=== PATIENT | female | born 1975 | race American Indian/Alaskan Native ===

== ENCOUNTER 2018-10-06 13:02 | Emergency (ER) | payer MEDICAID ==
[2018-10-06 13:28] VITALS: BP 132/86; PULSE 79; RESP 18; TEMP 97.9; O2SAT 99
[2018-10-06] MEDS ORDERED: PROPARACAINE/FLUORESCEIN SOD 100 DROP/5 ML BOTTLE OS STA (13:36)
[2018-10-06] MEDS ORDERED: PROPARACAINE/FLUORESCEIN SOD 100 DROP/5 ML BOTTLE ONE (14:00)
--- NOTE | 2018-10-06 14:04 | ED PDOC ---
HPI: Eye Injury/Pain Time Seen by Provider: 10/06/18 13:28 Chief Complaint (Nursing): Eye Problem Chief Complaint (Provider): Eye Problem History Per: Patient History/Exam Limitations: no limitations Onset/Duration Of Symptoms: Hrs (x62 hours) Current Symptoms Are (Timing): Still Present Additional Complaint(s): Jessica Castellanos is a 42 year old female with a past medical history of anemia and asthma, who presents to the emergency department complaining of left eye problems. Patient is unable to open her left eye and states that she is also experiencing photophobia. She states she has had some eye drainage and is also having some blurry vision. PMD: No provider Past Medical History Reviewed: Historical Data, Nursing Documentation, Vital Signs Vital Signs: Last Vital Signs Temp 97.9 F 10/06/18 13:26 Pulse 79 10/06/18 13:26 Resp 18 10/06/18 13:26 BP 132/86 10/06/18 13:26 Pulse Ox 99 10/06/18 13:26 - Medical History PMH: Anemia, Asthma, Bronchitis Denies: Chronic Kidney Disease - Surgical History Surgical History: No Surg Hx - Family History Family History: States: Unknown Family Hx - Immunization History Hx Tetanus Toxoid Vaccination: Yes Hx Influenza Vaccination: No Hx Pneumococcal Vaccination: No - Home Medications Home Medications: Ambulatory Orders Medication Instructions Recorded Famotidine [Pepcid] 20 mg PO BID #20 tab 04/12/18 Ondansetron ODT [Zofran ODT] 4 mg PO TID PRN #12 odt 04/12/18 Polymyxin/Trimethoprim Sulfate 1 drop XX Q6H 10 Days bottle 10/06/18 [Polytrim Ophth Soln] - Allergies Allergies/Adverse Reactions: Allergies Allergy/AdvReac Type Severity Reaction Status Date / Time SEASONAL Allergy Uncoded 04/12/18 13:45 Review of Systems ROS Statement: Except As Marked, All Systems Reviewed And Found Negative Eyes: Positive for: Pain, Vision Change, Redness Physical Exam - Reviewed Nursing Documentation Reviewed: Yes Vital Signs Reviewed: Yes - Physical Exam Appears: Positive for: Well, Non-toxic, No Acute Distress Head Exam: Positive for: ATRAUMATIC, NORMOCEPHALIC Skin: Positive for: Normal Color Eye Exam: Positive for: EOMI, PERRL, Conjunctival injection. Negative for: Other (No corneal abrasion) Neck: Positive for: Normal Cardiovascular/Chest: Negative for: Bradycardia, Tachycardia Respiratory: Negative for: Respiratory Distress Back: Positive for: Normal Inspection Extremity: Positive for: Normal ROM Neurologic/Psych: Positive for: Alert, Oriented, Gait. Negative for: Aphasia, Facial Droop - ECG O2 Sat by Pulse Oximetry: 99 (RA) Pulse Ox Interpretation: Normal Medical Decision Making Medical Decision Making: Time: 13:36 Plan: --Flucaine eye drops ---- Scribe Attestation: Documented by Louis Ghotra, acting as a scribe for Belinda Hurley PA-C Provider Scribe Attestation: All medical record entries made by the Scribe were at my direction and personally dictated by me. I have reviewed the chart and agree that the record accurately reflects my personal performance of the history, physical exam, medical decision making, and the department course for this patient. I have also personally directed, reviewed, and agree with the discharge instructions and disposition. Disposition - Clinical Impression Clinical Impression: Bacterial conjunctivitis - Disposition Disposition: Routine/Home Disposition Time: 14:24 Condition: STABLE Prescriptions: Polymyxin/Trimethoprim Sulfate [Polytrim Ophth Soln] 1 drop XX Q6H 10 Days bottle Instructions: Conjunctivitis ([place]) (DC) Forms: [employer] ([place]er)
== END 2018-10-06 14:29 | disposition home or self-care (01) ==
LOC: H.ER 13:02
DX: H10.89 Other conjunctivitis (principal); D64.9 Anemia, unspecified

== ENCOUNTER 2018-10-23 23:47 | Emergency (ER) | payer MEDICAID ==
[2018-10-23 23:56] VITALS: BP 124/75; PULSE 89; RESP 16; TEMP 97.8; O2SAT 98
--- NOTE | 2018-10-24 01:19 | ED PDOC ---
Lower Extremity Pain/Injury Time Seen by Provider: 10/23/18 23:57 Chief Complaint (Nursing): Lower Extremity Problem/Injury Chief Complaint (Provider): Lower Extremity Problem/Injury History Per: Patient History/Exam Limitations: no limitations Onset/Duration Of Symptoms: Days (1x) Current Symptoms Are (Timing): Still Present Severity: Moderate Additional Complaint(s): 42 year old female with a history of a fracture to the left leg presents to the ED for an evaluation of left leg pain that started today. Patient states she recently fractured her left leg (on 10/13/2018) and was evaluated at [facility] ED. Patient states she had her leg splinted, and states that she has an appointment with an orthopedist in an office on 10/27/2018, but is uncertain of the orthopedist's name. Patient was given an address to [facility] orthopedist clinic. Patient states that earlier today, she got up from a seated position with the help of her crutches, when she fell down and injured her left leg. Patient denies numbness and tingling to the leg. PMD: Sarmad Markham MD Past Medical History Reviewed: Historical Data, Nursing Documentation, Vital Signs Vital Signs: Last Vital Signs Temp 97.8 F 10/23/18 23:50 Pulse 89 10/23/18 23:50 Resp 16 10/23/18 23:50 BP 124/75 10/23/18 23:50 Pulse Ox 98 10/23/18 23:50 - Medical History PMH: Anemia, Asthma, Bronchitis Denies: Chronic Kidney Disease - Family History Family History: States: No Known Family Hx - Social History Current smoker - smoking cessation education provided: Yes Alcohol: Other (yes) Drugs: Denies - Immunization History Hx Tetanus Toxoid Vaccination: Yes Hx Influenza Vaccination: No Hx Pneumococcal Vaccination: No - Home Medications Home Medications: Ambulatory Orders Medication Instructions Recorded Famotidine [Pepcid] 20 mg PO BID #20 tab 04/12/18 Ondansetron ODT [Zofran ODT] 4 mg PO TID PRN #12 odt 04/12/18 Polymyxin/Trimethoprim Sulfate 1 drop XX Q6H 10 Days bottle 10/06/18 [Polytrim Ophth Soln] RX: Naproxen [Naprosyn] 500 mg PO BID PRN #10 tab 12/16/18 - Allergies Allergies/Adverse Reactions: Allergies Allergy/AdvReac Type Severity Reaction Status Date / Time SEASONAL Allergy Uncoded 04/12/18 13:45 Review of Systems ROS Statement: Except As Marked, All Systems Reviewed And Found Negative Musculoskeletal: Positive for: Leg Pain (left leg pain) Neurological: Negative for: Numbness ((-) tingling) Physical Exam - Reviewed Nursing Documentation Reviewed: Yes Vital Signs Reviewed: Yes - Physical Exam Appears: Positive for: Well, Non-toxic, No Acute Distress Head Exam: Positive for: ATRAUMATIC, NORMOCEPHALIC Skin: Positive for: Normal Color Extremity: Positive for: Capillary Refill (left lower extremity: <2 sec), Other (left lower extremity: in a posterior long leg splint: clean, dry, and intact. Distal sensations intact) Neurologic/Psych: Positive for: Alert, Oriented (3x) - ECG O2 Sat by Pulse Oximetry: 98 (RA) Pulse Ox Interpretation: Normal - Radiology X-Ray: Interpreted by Mi X-Ray Interpretation: Other (Lateral malleolar fracture minimally displaced distally, with normal mortise. Cast obscures fine bony and soft-tissue detail.) Medical Decision Making Medical Decision Makin:57 Initial impression: 42 year old female with a left lower extremity problem Initial plan: * XRay ankle left 3 views * XRay tibia fibula left Pt. informed of results. Advised to f/u [facility] ortho clinic on 10/27/2018 as previously scheduled without fail. Scribe Attestation: Documented bySobia Mujica, acting as a scribe for Gordo Glover Provider Scribe Attestation: All medical record entries made by the Scribe were at my direction and personally dictated by me. I have reviewed the chart and agree that the record accurately reflects my personal performance of the history, physical exam, medical decision making, and the department course for this patient. I have also personally directed, reviewed, and agree with the discharge instructions and disposition. Disposition - Clinical Impression Clinical Impression: Ankle fracture - Patient ED Disposition Is Patient to be Admitted: No - Disposition Referrals: Desmond Arceo III, MD [Staff Provider] - Disposition: Routine/Home Disposition Time: 02:00 Condition: STABLE Additional Instructions: FOLLOW UP YOUR ORTHOPEDIST ON 10/27/2018 WITHOUT FAIL RETURN TO ED IMMEDIATELY IF SYMPTOMS WORSEN AGUILAR ALANIS, thank you for letting us take care of you today. Your provider was Luis Miguel Don MD and you were treated for LT LEG PAIN. The emergency medical care you received today was directed at your acute symptoms. If you were prescribed any medication, please fill it and take as directed. It may take several days for your symptoms to resolve. Return to the Emergency Department if your symptoms worsen, do not improve, or if you have any other problems. Please contact your doctor or call one of the physicians/clinics you have been referred to that are listed on the Patient Visit Information form that is included in your discharge packet. Bring any paperwork you were given at discharge with you along with any medications you are taking to your follow up visit. Our treatment cannot replace ongoing medical care by a primary care provider outside of the emergency department. Thank you for allowing the [facility] team to be part of your care today. If you had an X-Ray or CT scan: A Radiologist will review the ED reading if any change in treatment is needed we will contact you. If you had a blood, urine, or wound culture: It will take several days for the results, if any change in treatment is needed we will contact you. If you had an STI test: It will take 48 hours for the results. Please call after 1 week if you have not heard back. Prescriptions: RX: Naproxen [Naprosyn] 500 mg PO BID PRN #10 tab PRN Reason: Pain Instructions: Ankle Fracture (DC) Forms: [employer] (German) Print Language: UPPER SORBIAN
--- NOTE | 2018-10-24 09:43 | RAD ---
Date of service: 10/24/2018 PROCEDURE: Radiographs of the left tibia and fibula. HISTORY: trauma COMPARISON: None available. TECHNIQUE: Frontal and lateral views obtained. FINDINGS: BONES: Cast obscures fine bone and soft-tissue detail. Minimally displaced fibular fracture appreciated at the level of the lateral malleolus. No additional fracture appreciable. No dislocation. No destructive bony lesion. Local soft tissues appear diffusely unremarkable. JOINT SPACES: As above. OTHER FINDINGS: None. IMPRESSION: Lateral malleolar fracture left ankle. No dislocation. Remainder unremarkable.
--- NOTE | 2018-10-24 09:44 | RAD ---
Date of service: 10/24/2018 PROCEDURE: Left Ankle Radiographs. HISTORY: trauma COMPARISON: None available. FINDINGS: BONES: Oblique lateral malleolar fracture. No additional fracture identified. JOINTS: Normal. No osteoarthritis. Ankle mortise maintained. Talar dome intact SOFT TISSUES: Normal. OTHER FINDINGS: Cast obscures fine bone and soft-tissue detail. IMPRESSION: Lateral malleolar fracture minimally displaced distally, with normal mortise. Cast obscures fine bony and soft-tissue detail.
== END 2018-10-24 01:51 | disposition home or self-care (01) ==
LOC: H.ER 23:47
DX: S82.62XG Displaced fracture of lateral malleolus of left fibula, subsequent encounter for closed fracture with delayed healing (principal); W18.30XD Fall on same level, unspecified, subsequent encounter; F17.200 Nicotine dependence, unspecified, uncomplicated; J45.909 Unspecified asthma, uncomplicated

== ENCOUNTER 2018-11-15 01:47 | Emergency (ER) | payer SELFPAY ==
[2018-11-15 01:54] VITALS: BP 134/90; PULSE 101; RESP 16; TEMP 98.9
--- NOTE | 2018-11-15 03:01 | ED PDOC ---
HPI: General Adult Time Seen by Provider: 11/15/18 02:05 Chief Complaint (Nursing): Medical Clearance Chief Complaint (Provider): Medical Clearance History Per: Patient History/Exam Limitations: no limitations Additional Complaint(s): 42 y/o female with history of asthma was brought to the ED for medical clearance for incarceration. Patient states she broke her ankle on 10/13/18 and went to [facility] on the and was placed in a full splint. She denies any fall or trauma since. she followed up with ortho at [facility] but shes doesnt remember his name. Past Medical History Reviewed: Historical Data, Nursing Documentation, Vital Signs Vital Signs: Last Vital Signs Temp 98.9 F 11/15/18 01:53 Pulse 101 H 11/15/18 01:53 Resp 16 11/15/18 01:53 BP 134/90 11/15/18 01:53 Pulse Ox 97 11/15/18 01:53 - Medical History PMH: Anemia, Asthma, Bronchitis Denies: Chronic Kidney Disease - Surgical History Surgical History: No Surg Hx - Family History Family History: States: Unknown Family Hx - Social History Alcohol: > 2 Drinks/Day Drugs: Cannabis (daily) - Immunization History Hx Tetanus Toxoid Vaccination: Yes Hx Influenza Vaccination: No Hx Pneumococcal Vaccination: No - Home Medications Home Medications: Ambulatory Orders Medication Instructions Recorded Famotidine [Pepcid] 20 mg PO BID #20 tab 04/12/18 Ondansetron ODT [Zofran ODT] 4 mg PO TID PRN #12 odt 04/12/18 Polymyxin/Trimethoprim Sulfate 1 drop XX Q6H 10 Days bottle 10/06/18 [Polytrim Ophth Soln] RX: Naproxen [Naprosyn] 500 mg PO BID PRN #10 tab 10/24/18 - Allergies Allergies/Adverse Reactions: Allergies Allergy/AdvReac Type Severity Reaction Status Date / Time SEASONAL Allergy Uncoded 04/12/18 13:45 Review of Systems ROS Statement: Except As Marked, All Systems Reviewed And Found Negative Physical Exam - Reviewed Nursing Documentation Reviewed: Yes Vital Signs Reviewed: Yes - Physical Exam Appears: Positive for: No Acute Distress Head Exam: Positive for: ATRAUMATIC, NORMOCEPHALIC Skin: Positive for: Normal Color, Warm, DRY Eye Exam: Positive for: EOMI, Normal appearance, PERRL Neck: Positive for: Normal, Painless ROM, Supple Cardiovascular/Chest: Positive for: Regular Rate, Rhythm, Tachycardia. Negative for: Murmur Respiratory: Positive for: Normal Breath Sounds. Negative for: Respiratory Distress Gastrointestinal/Abdominal: Positive for: Normal Exam, Soft. Negative for: Tenderness Extremity: Positive for: Normal ROM, Other (Left foot in splint). Negative for: Pedal Edema, Deformity Neurologic/Psych: Positive for: Alert, Oriented. Negative for: Motor/Sensory Deficits - ECG O2 Sat by Pulse Oximetry: 97 (RA) Pulse Ox Interpretation: Normal Medical Decision Making Medical Decision Making: Time: 02:57 Initial Impression: medical clearance for incarceration Initial Plan: * Tylenol 650 mg * Called Podiatry for consult 03:48 Patient is refusing Tylenol at this time. Patient was seen by podiatry. pt appears comfortable. Fracture looks like it is healing. Will change patients splint. \ pt has no mobility issues. Patient has no psychological complaints. Stable for discharge to police custody. Scribe Attestation: Documented by Rudy Ferrara, acting as a scribe for Jameson Carballo MD. Provider Scribe Attestation: All medical record entries made by the Scribe were at my direction and perso art dictated by me. I have reviewed the chart and agree that the record accurately reflects my personal performance of the history, physical exam, medical decision making, and the department course for this patient. I have also personally directed, reviewed, and agree with the discharge instructions and disposition. Disposition - Clinical Impression Clinical Impression: Ankle fracture - Patient ED Disposition Is Patient to be Admitted: No Counseled Patient/Family Regarding: Studies Performed, Diagnosis, Need For Followup - Disposition Disposition: Discharged/Transfer to Law Enforcement Disposition Time: 03:25 Condition: IMPROVED Additional Instructions: follow up with your orthopedist as instructed you are medically and psychiatrically cleared for incarceration Instructions: Ankle Fracture (DC) Forms: [employer] (Tajik)
[2018-11-15 04:51] VITALS: O2SAT 97
--- NOTE | 2018-11-15 13:30 | RAD ---
Date of service: 11/15/2018 PROCEDURE: Left Foot Radiographs. HISTORY: Pain. No history of recent/ related trauma provided COMPARISON: 10/24/2018 FINDINGS: BONES: Incompletely visualize distal left fibular fracture. JOINTS: Normal. SOFT TISSUES: Normal. OTHER FINDINGS: None. IMPRESSION: Distal fibular fracture similar to that seen previously.
--- NOTE | 2018-11-15 13:31 | RAD ---
Date of service: 11/15/2018 PROCEDURE: Left Ankle Radiographs. HISTORY: pain COMPARISON: 10/24/2018. FINDINGS: BONES: Oblique fracture distal left fibula. Major fracture fragments are anatomically aligned. JOINTS: Normal. No osteoarthritis. Ankle mortise maintained. Talar dome intact SOFT TISSUES: No appreciable lateral soft tissue swelling. OTHER FINDINGS: None. IMPRESSION: Anatomic alignment of distal left fibular fracture fragments. No acute findings.
--- NOTE | 2018-11-16 08:57 | CP.PCM.CON ---
History of Present Illness - History of Present Illness History of Present Illness: Podiatry Consult Note for Dr. Marin: 42 year old female patient with PMHx of Asthma, seen and evaluated in the ED for L ankle pain. Patient states "I don't want this splint anymore". Patient states that in early October she broke her ankle, was brought to [facility] where she was placed in a posterior splint. She recently presented to [facility] for a similar complaint however no new findings were appreciated. Patient states that occasionally walks on her posterior splint. She denies any new recent traumas. She has an appointment for a follow up with her doctor at [facility]. Review of Systems - Review of Systems Review of Systems: As per HPI Past Patient History - Past Social History Alcohol: > 2 Drinks/Day Drugs: Cannabis (daily) - CARDIAC Hx Cardiac Disorders: No - PULMONARY Hx Asthma: Yes Hx Bronchitis: Yes - NEUROLOGICAL Hx Neurological Disorder: No - HEENT Hx HEENT Problems: No - RENAL Hx Chronic Kidney Disease: No - ENDOCRINE/METABOLIC Hx Endocrine Disorders: No - HEMATOLOGICAL/ONCOLOGICAL Hx Anemia: Yes - INTEGUMENTARY Hx Eczema: Yes - MUSCULOSKELETAL/RHEUMATOLOGICAL Hx Musculoskeletal Disorders: No - GASTROINTESTINAL Hx Gastrointestinal Disorders: No - GENITOURINARY/GYNECOLOGICAL Hx Genitourinary Disorders: No - PSYCHIATRIC Hx Psychophysiologic Disorder: No Hx Substance Use: No - SURGICAL HISTORY Hx Surgeries: Yes Hx Breast Biopsy: Yes - ANESTHESIA Hx Anesthesia: Yes Hx Anesthesia Reactions: No Meds Allergies/Adverse Reactions: Allergies Allergy/AdvReac Type Severity Reaction Status Date / Time SEASONAL Allergy Uncoded 04/12/18 13:45 Physical Exam - Constitutional Appears: Well, Non-toxic, No Acute Distress - Head Exam Head Exam: ATRAUMATIC, NORMOCEPHALIC - Extremities Exam Extremities exam: Positive for: normal capillary refill, pedal pulses present. Negative for: calf tenderness Additional comments: Vascular: DP/PT 2/4, CFT < 3 seconds, TG warm to warm, no edema appreciated, pedal hair present Ortho: Mild pain upon palpation of lateral malleolus, MMT 4/5 secondary to patie nt guarding, patient able to wiggle toes Neuro: Gross and protective sensation intact Derm: No open lesions, no erythema, no clinical signs of infection - Neurological Exam Neurological exam: Alert, Oriented x3 - Psychiatric Exam Psychiatric exam: Normal Affect, Normal Mood Results - Vital Signs Recent Vital Signs: Last Vital Signs Temp 98.9 F 11/15/18 01:53 Pulse 101 H 11/15/18 01:53 Resp 16 11/15/18 01:53 BP 134/90 11/15/18 01:53 Pulse Ox 97 11/15/18 04:50 Assessment & Plan - Assessment and Plan (Free Text) Assessment: 42 year old female patient with PMHx of Asthma, seen and evaluated in the ED for L fibular fracture Plan: Patient seen and evaluated with all questions and concerns addressed Patient discussed in detail with Dr. Marin Foot and ankle x-rays reviewed and compared with last visit; osseous bridging appreciated of the distal fibular fracture (read by me) Patient placed in posterior splint and instructed to remain strict NWB Patient told to follow up with original orthopedist at [facility] or podiatry clinic for further care Thank you for the consult - Date & Time Date: 11/14/18 Time: 03:00
== END 2018-11-15 04:10 ==
LOC: H.ER 01:47
DX: S82.892D Other fracture of left lower leg, subsequent encounter for closed fracture with routine healing (principal); J45.909 Unspecified asthma, uncomplicated

== ENCOUNTER 2018-11-22 05:29 | Emergency (ER) | payer SELFPAY ==
[2018-11-22 05:54] VITALS: BMI 24.5
[2018-11-22 05:57] VITALS: BP 170/90; PULSE 80; RESP 18; TEMP 98.3; O2SAT 98
--- NOTE | 2018-11-22 06:12 | ED PDOC ---
Lower Extremity Pain/Injury Time Seen by Provider: 11/22/18 05:34 Chief Complaint (Nursing): Lower Extremity Problem/Injury History Per: Patient History/Exam Limitations: no limitations Additional Complaint(s): 42 year old homeless F presenting with L foot pain, states she has a broken foot and has been walking around on her cast because she lost her crutches. Patient has been in the waiting room for 10 hours and signed up after being asked to leave. PAtient has not followed [place] at [facility]. Past Medical History Vital Signs: Last Vital Signs Temp 98.3 F 11/22/18 05:54 Pulse 80 11/22/18 05:54 Resp 18 11/22/18 05:54 BP 170/90 H 11/22/18 05:54 Pulse Ox 98 11/22/18 05:54 - Medical History PMH: Anemia, Asthma, Bronchitis Denies: Chronic Kidney Disease - Family History Family History: States: Unknown Family Hx - Immunization History Hx Tetanus Toxoid Vaccination: Yes Hx Influenza Vaccination: No Hx Pneumococcal Vaccination: No - Home Medications Home Medications: Ambulatory Orders Medication Instructions Recorded Famotidine [Pepcid] 20 mg PO BID #20 tab 04/12/18 Ondansetron ODT [Zofran ODT] 4 mg PO TID PRN #12 odt 04/12/18 Polymyxin/Trimethoprim Sulfate 1 drop XX Q6H 10 Days bottle 10/06/18 [Polytrim Ophth Soln] Naproxen [Naprosyn] 500 mg PO BID PRN #10 tab 10/24/18 Ibuprofen [Motrin Tab] 600 mg PO Q6 #30 tab 11/22/18 - Allergies Allergies/Adverse Reactions: Allergies Allergy/AdvReac Type Severity Reaction Status Date / Time SEASONAL Allergy COUGH Uncoded 11/22/18 05:53 Review of Systems ROS Statement: Except As Marked, All Systems Reviewed And Found Negative Musculoskeletal: Positive for: Foot Pain Physical Exam - Reviewed Nursing Documentation Reviewed: Yes Vital Signs Reviewed: Yes - Physical Exam Appears: Positive for: Well, Non-toxic, No Acute Distress Extremity: Positive for: Other (Foot in cast, toes are warm and well perfused, sensation intact) - ECG O2 Sat by Pulse Oximetry: 98 Medical Decision Making Medical Decision Making: Patient with foot pain, known fracture, no new trauma Advised to followup with [facility] [place]o Stable for discharge Disposition - Clinical Impression Clinical Impression: Ankle fracture - Patient ED Disposition Is Patient to be Admitted: No - Disposition Referrals: Podiatry Clinic [Outside] Disposition: Routine/Home Disposition Time: 06:12 Condition: STABLE Prescriptions: Ibuprofen [Motrin Tab] 600 mg PO Q6 #30 tab Instructions: Ankle Fracture
== END 2018-11-22 06:38 | disposition home or self-care (01) ==
LOC: H.ER 05:29
DX: S82.892G Other fracture of left lower leg, subsequent encounter for closed fracture with delayed healing (principal)

== ENCOUNTER 2018-12-04 02:58 | Emergency (ER) | payer SELFPAY ==
[2018-12-04 02:58] VITALS: BMI 24.5
[2018-12-04 03:07] VITALS: BP 130/98; PULSE 88; RESP 16; TEMP 97.6; O2SAT 100
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
== END 2018-12-04 04:17 | disposition home or self-care (01) ==
LOC: H.ER 02:58
DX: M25.571 Pain in right ankle and joints of right foot (principal)

== ENCOUNTER 2018-12-14 01:17 | Emergency (ER) | payer SELFPAY ==
[2018-12-14 01:18] VITALS: BMI 24.5
[2018-12-14 01:57] VITALS: RESP 18
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
[2018-12-14 06:49] VITALS: BP 103/57; PULSE 85; TEMP 98.7; O2SAT 98
== END 2018-12-14 05:00 | disposition home or self-care (01) ==
LOC: H.ER 01:17
DX: J45.909 Unspecified asthma, uncomplicated (principal)

== ENCOUNTER 2018-12-23 12:10 | Emergency (ER) | payer SELFPAY ==
[2018-12-23 12:10] VITALS: BMI 24.5
[2018-12-23 12:21] VITALS: BP 153/96; PULSE 110; RESP 18; TEMP 97.9; O2SAT 99
--- NOTE | 2018-12-23 12:51 | ED PDOC ---
Lower Extremity Pain/Injury Time Seen by Provider: 12/23/18 12:30 Chief Complaint (Nursing): Lower Extremity Problem/Injury Chief Complaint (Provider): Left Foot Pain History Per: Patient, Other (friend) History/Exam Limitations: other (pt is combative, not answering questions) Onset/Duration Of Symptoms: Days (x2 months) Current Symptoms Are (Timing): Still Present Additional Complaint(s): 43 year old female presents to the ED for evaluation of chronic left foot pain. Patient is aggressive, cursing at staff, and will not cooperate. She is only saying that her left foot is broken and hurts. As per friend present, he states patient was seen about two months ago for left foot pain, given a cast and told to follow up with orthopedics. He notes she never followed up and began self treating, removing her cast yesterday. After reviewing old charts, patient was seen here 11/22, 12/04, and 12/14 for left foot pain without following up with ortho, and removed her cast before each visit as well. PMD: none provided Past Medical History Reviewed: Historical Data, Nursing Documentation, Vital Signs Vital Signs: Last Vital Signs Temp 97.9 F 12/23/18 12:16 Pulse 110 H 12/23/18 12:16 Resp 18 12/23/18 12:16 BP 153/96 H 12/23/18 12:16 Pulse Ox 99 12/23/18 12:16 - Medical History PMH: Anemia, Asthma, Bronchitis, Fractures (LEFT FOOT) Denies: Chronic Kidney Disease - Surgical History Surgical History: No Surg Hx - Family History Family History: States: Unknown Family Hx - Social History Alcohol: Other (as per friend present she is a frequent drinker) - Immunization History Hx Tetanus Toxoid Vaccination: Yes Hx Influenza Vaccination: No Hx Pneumococcal Vaccination: No - Home Medications Home Medications: Ambulatory Orders Medication Instructions Recorded Famotidine [Pepcid] 20 mg PO BID #20 tab 04/12/18 Ondansetron ODT [Zofran ODT] 4 mg PO TID PRN #12 odt 04/12/18 Polymyxin/Trimethoprim Sulfate 1 drop XX Q6H 10 Days bottle 10/06/18 [Polytrim Ophth Soln] RX: Naproxen [Naprosyn] 500 mg PO BID PRN #10 tab 10/24/18 RX: Ibuprofen [Motrin Tab] 600 mg PO Q6 #30 tab 11/22/18 - Allergies Allergies/Adverse Reactions: Allergies Allergy/AdvReac Type Severity Reaction Status Date / Time FISH Allergy RASH Verified 12/14/18 01:52 PORK Allergy RASH Verified 12/14/18 01:52 SEASONAL Allergy COUGH Uncoded 12/14/18 01:52 Review of Systems ROS Statement: Except As Marked, All Systems Reviewed And Found Negative Musculoskeletal: Positive for: Foot Pain (left) - ECG O2 Sat by Pulse Oximetry: 99 (RA) Pulse Ox Interpretation: Normal Medical Decision Making Medical Decision Making: Time: 1237 Initial Impression: chronic left foot pain Initial Plan: --U-preg --Left foot XR 1245 Patient remains combative and refusing to cooperate at this time. Scribe Attestation: Documented by Cony Cook, acting as a scribe for Timmy Higgins PA-C. Provider Scribe Attestation: All medical record entries made by the Scribe were at my direction and personally dictated by me. I have reviewed the chart and agree that the record accurately reflects my personal performance of the history, physical exam, medical decision making, and the department course for this patient. I have also personally directed, reviewed, and agree with the discharge instructions and disposition. Disposition - Clinical Impression Clinical Impression: Foot pain, left - Disposition Referrals: Orthopedic Clinic at [place] [Outside] Podiatry Clinic [Outside] Disposition: Left W/O Treatment Disposition Time: 13:00 Condition: STABLE Additional Instructions: Follow up with the specialist as advised in the past Evaluation of your foot is not possible as you have refused diagnostic examination including the abilty to have an xray performed Instructions: Muscle and Bone Pain (DC) Forms: [employer] [facility] (Sami)
== END 2018-12-23 13:20 | disposition left against medical advice (07) ==
LOC: H.ER 12:10
DX: M79.672 Pain in left foot (principal); G89.29 Other chronic pain

== ENCOUNTER 2019-01-12 04:52 | Emergency (ER) | payer SELFPAY ==
[2019-01-12 04:53] VITALS: BMI 24.5
[2019-01-12] MEDS ORDERED: Sodium Chloride 0.9% 1,000 ML IV STA (05:46)
--- NOTE | 2019-01-12 06:06 | ED PDOC ---
HPI: Abdomen Time Seen by Provider: 01/12/19 05:31 Chief Complaint (Nursing): Abdominal Pain Chief Complaint (Provider): Abdominal Pain History Per: Patient History/Exam Limitations: no limitations Onset/Duration Of Symptoms: Hrs Current Symptoms Are (Timing): Still Present Location Of Pain/Discomfort: Diffuse Quality Of Discomfort: "Pain" Associated Symptoms: Nausea, Vomiting, Diarrhea, Other (headache) Additional Complaint(s): 43 year old undomiciled female with a history of asthma presents to the ED for evaluation of abdominal pain and headache that started three hours ago. Symptoms are associated with nausea, vomiting and diarrhea. She admits to drinking alcohol last night as well as everyday. Patient drank milk to see if it would help, but it did not. Offers no other complaints. PMD: none provided Past Medical History Reviewed: Historical Data, Nursing Documentation, Vital Signs Vital Signs: Last Vital Signs Temp 98.2 F 01/12/19 05:16 Pulse 117 H 01/12/19 05:16 Resp 18 01/12/19 05:16 BP 170/98 H 01/12/19 05:16 Pulse Ox 98 01/12/19 05:16 - Medical History PMH: Anemia, Asthma, Bronchitis, Fractures (LEFT FOOT) Denies: Chronic Kidney Disease - Surgical History Surgical History: No Surg Hx - Family History Family History: States: Unknown Family Hx - Immunization History Hx Tetanus Toxoid Vaccination: Yes Hx Influenza Vaccination: No Hx Pneumococcal Vaccination: No - Home Medications Home Medications: Ambulatory Orders Medication Instructions Recorded Famotidine [Pepcid] 20 mg PO BID #20 tab 04/12/18 Ondansetron ODT [Zofran ODT] 4 mg PO TID PRN #12 odt 04/12/18 Polymyxin/Trimethoprim Sulfate 1 drop XX Q6H 10 Days bottle 10/06/18 [Polytrim Ophth Soln] Naproxen [Naprosyn] 500 mg PO BID PRN #10 tab 10/24/18 Ibuprofen [Motrin Tab] 600 mg PO Q6 #30 tab 11/22/18 Famotidine [Pepcid] 20 mg PO Q12 #14 tab 01/12/19 Metoclopramide [Reglan] 10 mg PO Q6 PRN #12 tab 01/12/19 - Allergies Allergies/Adverse Reactions: Allergies Allergy/AdvReac Type Severity Reaction Status Date / Time FISH Allergy RASH Verified 12/14/18 01:52 PORK Allergy RASH Verified 12/14/18 01:52 SEASONAL Allergy COUGH Uncoded 12/14/18 01:52 Review of Systems ROS Statement: Except As Marked, All Systems Reviewed And Found Negative Constitutional: Negative for: Fever, Chills Gastrointestinal: Positive for: Nausea, Vomiting, Abdominal Pain, Diarrhea Neurological: Positive for: Headache Physical Exam - Reviewed Nursing Documentation Reviewed: Yes Vital Signs Reviewed: Yes - Physical Exam Appears: Positive for: Non-toxic, No Acute Distress Head Exam: Positive for: ATRAUMATIC, NORMAL INSPECTION, NORMOCEPHALIC Skin: Positive for: Normal Color, Warm, Dry Eye Exam: Positive for: EOMI, Normal appearance, PERRL Neck: Positive for: Normal, Painless ROM Cardiovascular/Chest: Positive for: Regular Rate, Rhythm. Negative for: Murmur Respiratory: Positive for: Normal Breath Sounds. Negative for: Respiratory Distress Gastrointestinal/Abdominal: Positive for: Tenderness (mild epigatric tenderness). Negative for: Guarding, Rebound Back: Positive for: Normal Inspection Extremity: Positive for: Normal ROM. Negative for: Deformity Neurologic/Psych: Positive for: Alert, Oriented (x 3). Negative for: Motor/Sensory Deficits - Laboratory Results Result Diagrams: 01/12/19 05:52 01/12/19 05:52 - ECG O2 Sat by Pulse Oximetry: 98 (RA) Pulse Ox Interpretation: Normal Medical Decision Making Medical Decision Makin:55 Impression: abdominal pain and a headache in setting of alcohol use. Initial Plan: --Alcohol --UDS --CBC --CMP --Lipase --Urine preg --Urine dip --NS IV --Pepcid 20 mg IVP --Reglan 10 mg IVPB 07:00 Patient reports improvement in symptoms. Labs were reviewed with no clinically significant abnormalities. Discussed necessity for alcohol cessation. Patient will be discharged home with recommended follow up. Scribe Attestation: Documented by Sandi Ruth acting as a scribe for Mode Matute MD Provider Scribe Attestation: All medical record entries made by the Scribe were at my direction and personally dictated by me. I have reviewed the chart and agree that the record accurately reflects my personal performance of the history, physical exam, medical decision making, and the department course for this patient. I have also personally directed, reviewed, and agree with the discharge instructions and disposition. Disposition - Clinical Impression Clinical Impression: Alcoholic gastritis - Patient ED Disposition Is Patient to be Admitted: Transfer of Care - Disposition Disposition: Transfer of Care Disposition Time: 07:00 Condition: IMPROVED Prescriptions: Famotidine [Pepcid] 20 mg PO Q12 #14 tab Metoclopramide [Reglan] 10 mg PO Q6 PRN #12 tab PRN Reason: headache/nausea/vomiting Instructions: Gastritis Forms: [facility] (Belarusian) Patient Signed Over To: Sobia Fitzpatrick
[2019-01-12 06:28] LABS: BASO % 0.6 % (0.0-2.0); EOS % 0.7 % (0.0-4.0); HEMOGLOBIN 14.5 g/dL (12.0-16.0); LYMPH # 1.3 K/uL (1.0-4.3); LYMPH % 20.8 % (20.0-40.0); MEAN CORPUSCULAR HEMOGLOBIN 33.4 pg (27.0-31.0); MEAN CORPUSCULAR HGB CONC 34.1 g/dL (33.0-37.0); MEAN PLATELET VOLUME 7.6 fl (7.2-11.7); MONO # 0.5 K/uL (0.0-0.8); MONO % 7.4 % (0.0-10.0); NEUT # 4.5 K/uL (1.8-7.0); NEUT % 70.5 % (50.0-75.0); NRBC % 0.1 % (0.0-0.0); RBC 4.34 Mil/uL (3.80-5.20); RED CELL DISTRIBUTION WIDTH 13.2 % (11.5-14.5); WHITE BLOOD COUNT 6.4 K/uL (4.8-10.8)
[2019-01-12 06:36] LABS: ALB/GLOB RATIO 1.2 (1.0-2.1); ALBUMIN 4.7 g/dL (3.5-5.0); ALT/SGPT 18 U/L (9-52); AST/SGOT 35 U/L (14-36); BLOOD UREA NITROGEN 11 mg/dl (7-17); CALCIUM 9.9 mg/dL (8.4-10.2); GFR NON-AFRICAN AMERICAN > 60; LIPASE 79 U/L (23-300)
[2019-01-12 10:16] VITALS: BP 152/101; PULSE 84; RESP 18; TEMP 98.8; O2SAT 99
== END 2019-01-12 08:29 | disposition home or self-care (01) ==
LOC: H.ER 04:52
DX: K29.20 Alcoholic gastritis without bleeding (principal)
CPT/HCPCS: 80053; 81025; 83690; 85025; 99285; G0480; J2765; J7030

== ENCOUNTER 2019-01-13 21:24 | Emergency (ER) | payer SELFPAY ==
[2019-01-13 21:24] VITALS: BMI 24.5
[2019-01-13 22:13] VITALS: BP 131/60; PULSE 100; RESP 20; TEMP 98; O2SAT 98
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
== END 2019-01-13 23:18 | disposition home or self-care (01) ==
LOC: H.ER 21:24
DX: B36.0 Pityriasis versicolor (principal)
CPT/HCPCS: 96372; 99282; J1100

== ENCOUNTER 2019-02-22 00:43 | Emergency (ER) | payer SELFPAY ==
[2019-02-22 00:53] VITALS: BMI 24.7
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
[2019-02-22 03:28] VITALS: RESP 16
[2019-02-22 04:34] VITALS: BP 122/78; PULSE 82; TEMP 98.2; O2SAT 98
== END 2019-02-22 04:32 | disposition home or self-care (01) ==
LOC: H.ER 00:43
DX: F10.129 Alcohol abuse with intoxication, unspecified (principal); J45.909 Unspecified asthma, uncomplicated

== ENCOUNTER 2019-03-19 08:08 | Emergency (ER) | payer SELFPAY ==
[2019-03-19 08:13] VITALS: BMI 24.9
[2019-03-19] MEDS ORDERED: Albuterol-Ipratrop 3 mg / 0.5 (3 ml) UD IH STA (08:24)
[2019-03-19] MEDS ORDERED: Albuterol-Ipratrop 3 mg / 0.5 (3 ml) UD INH STA (08:24)
[2019-03-19] MEDS ORDERED: Albuterol-Ipratrop 3 mg / 0.5 (3 ml) UD ONE (08:41)
--- NOTE | 2019-03-19 08:46 | ED PDOC ---
History of Present Illness History of Present Illness: 43 years old homeless female with history of hypertension, asthma and bronchitis presents to ER for evaluation of cough, sore throat, runny nose, difficulty breathing, chills and bodyaches onset 3 to 4 days ago. Patient reports dark green phlegm with cough. She states she has seasonal allergy and denies fevers or taking any medications. No weakness, dizziness, numbness, tingles. PMD: Anurag Markham HPI: Influenza Time Seen by Provider: 03/19/19 08:10 Chief Complaint: Cough, Cold, Congestion Chief Complaint (Provider): Cough, Cold, Congestion History Per: Patient Exam Limitations: no limitations Onset/Duration Of Symptoms: Days (x3-4) Symptoms include: bodyaches, sore throat, cough (prodcutive with dark green phlegm), difficulty breathing, other (Chills). denies: fever Past Medical History Reviewed: Historical Data, Nursing Documentation, Vital Signs Vital Signs: Last Vital Signs Temp 97.7 F 03/19/19 08:14 Pulse 133 H 03/19/19 08:14 Resp 22 03/19/19 08:14 BP 119/80 03/19/19 08:14 Pulse Ox 98 03/19/19 08:14 Primary Care Provider: Anurag Markham - Medical History PMH: Anemia, Asthma, Bronchitis, Fractures (LEFT FOOT), HTN Denies: Chronic Kidney Disease - Surgical History Surgical History: - Family History Family History: States: Unknown Family Hx - Social History Current smoker - smoking cessation education provided: Yes Alcohol: Social Drugs: Denies - Immunization History Hx Tetanus Toxoid Vaccination: Yes Hx Influenza Vaccination: No Hx Pneumococcal Vaccination: No - Home Medications Home Medications: Ambulatory Orders Medication Instructions Recorded Famotidine [Pepcid] 20 mg PO BID #20 tab 04/12/18 Ondansetron ODT [Zofran ODT] 4 mg PO TID PRN #12 odt 04/12/18 Polymyxin/Trimethoprim Sulfate 1 drop XX Q6H 10 Days bottle 10/06/18 [Polytrim Ophth Soln] Naproxen [Naprosyn] 500 mg PO BID PRN #10 tab 10/24/18 Ibuprofen [Motrin Tab] 600 mg PO Q6 #30 tab 11/22/18 Famotidine [Pepcid] 20 mg PO Q12 #14 tab 01/12/19 Metoclopramide [Reglan] 10 mg PO Q6 PRN #12 tab 01/12/19 Clotrimazole 1% Cream [Lotrimin 1%] 1 appl TOP TID #30 gm 01/13/19 Albuterol Sulfate [Proair Hfa] 0.09 mg IH Q6H PRN #2 inh 03/19/19 Benzonatate [Tessalon Perles] 100 mg PO BID PRN 5 Days sgl 03/19/19 Ibuprofen [Motrin] 600 mg PO TID 7 Days tab 03/19/19 predniSONE [predniSONE Tab] 20 mg PO BID 5 Days tab 03/19/19 - Allergies Allergies/Adverse Reactions: Allergies Allergy/AdvReac Type Severity Reaction Status Date / Time FISH Allergy RASH Verified 02/22/19 00:53 PORK Allergy RASH Verified 02/22/19 00:53 SEASONAL Allergy COUGH Uncoded 02/22/19 00:53 Review of Systems ROS Statement: Except As Marked, All Systems Reviewed And Found Negative Constitutional: Positive for: Chills, Other (Bodyaches). Negative for: Fever ENT: Positive for: Nose Discharge, Throat Pain Respiratory: Positive for: Cough (with dark green phlegm), Shortness of Breath Physical Exam - Reviewed Nursing Documentation Reviewed: Yes Vital Signs Reviewed: Yes - Physical Exam Appears: Positive for: No Acute Distress Head Exam: Positive for: ATRAUMATIC, NORMOCEPHALIC Skin: Positive for: Normal Color, Warm, Dry Eye Exam: Positive for: Normal appearance, EOMI, PERRL ENT: Positive for: Nasal Congestion, Pharyngeal Erythema. Negative for: Tonsillar Exudate Neck: Positive for: Normal, Painless ROM, Supple Cardiovascular/Chest: Positive for: Regular Rate, Rhythm. Negative for: Murmur Respiratory: Positive for: Wheezing (Bilaterally) Gastrointestinal/Abdominal: Positive for: Normal Exam, Soft. Negative for: Tenderness Back: Positive for: Normal Inspection. Negative for: L CVA Tenderness, R CVA Tenderness Extremity: Positive for: Normal ROM. Negative for: Pedal Edema, Swelling Neurological/Psych: Positive for: Awake, Oriented (x3) Medical Decision Making Medical Decision Making: Time: 823 Initial plan: --Duoneb 3 ml INH --Motrin 600 mg PO --Tessalon Perles 100 mg PO --Prednisone 60 mg PO --Rapid strep group A antigen Scribe Attestation: Documented by Neeru Marcelino acting as a scribe for Gallito Arce MD. Provider Scribe Attestation: All medical record entries made by the Scribe were at my direction and personally dictated by me. I have reviewed the chart and agree that the record accurately reflects my personal performance of the history, physical exam, medical decision making, and the department course for this patient. I have also personally directed, reviewed, and agree with the discharge instructions and disposition. - ECG O2 Sat by Pulse Oximetry: 98 (RA) Pulse Ox Interpretation: Normal - Progress ED Course And Treament: 1045: Stable. AAOx3. Pain free. Tolerated. Breathing better. No wheezes. Disposition - Clinical Impression Clinical Impression: Bronchitis - Patient ED Disposition Is Patient to be Admitted: No Counseled Patient/Family Regarding: Studies Performed, Diagnosis, Need For Followup, Rx Given - Disposition Referrals: [facility] [Outside] - 03/21/19 Disposition: Routine/Home Disposition Time: 10:47 Condition: STABLE Additional Instructions: Return if not better in 3 days. Prescriptions: Albuterol Sulfate [Proair Hfa] 0.09 mg IH Q6H PRN #2 inh PRN Reason: Wheezing Benzonatate [Tessalon Perles] 100 mg PO BID PRN 5 Days sgl PRN Reason: Cough Ibuprofen [Motrin] 600 mg PO TID 7 Days tab predniSONE [predniSONE Tab] 20 mg PO BID 5 Days tab Instructions: Acute Bronchitis
[2019-03-19 10:59] VITALS: BP 112/64; PULSE 87; RESP 18; TEMP 98.1; O2SAT 99
== END 2019-03-19 11:02 | disposition home or self-care (01) ==
LOC: H.ER 08:08
DX: J40 Bronchitis, not specified as acute or chronic (principal); Z59.0 Homelessness; I10 Essential (primary) hypertension
CPT/HCPCS: 81025; 87070; 87430; 94150; 94640; 96372; 99284; J2405

== ENCOUNTER 2019-03-21 00:44 | Emergency (ER) | payer SELFPAY ==
[2019-03-21 00:45] VITALS: BMI 24.9
[2019-03-21 01:04] VITALS: TEMP 98.4
[2019-03-21] MEDS ORDERED: Albuterol-Ipratrop 3 mg / 0.5 (3 ml) UD INH STA ×2 (01:10→02:22)
--- NOTE | 2019-03-21 01:14 | ED PDOC ---
HPI: SOB/CHF/COPD Time Seen by Provider: 03/21/19 00:45 Chief Complaint (Nursing): Respiratory Distress Chief Complaint (Provider): Cough History Per: Patient History/Exam Limitations: no limitations Onset/Duration Of Symptoms: Days Current Symptoms Are (Timing): Still Present Additional History Per: Patient Additional Complaint(s): 43yo female with history of hypertension, asthma, bronchitis, comes to ER for evaluation due to persistent wheeze. Patient was seen here yesterday for same complaints, was given prednisone, duonebs, motrin and sent home. Patient states she lost her prescriptions, prompting ER visit. She denies any new complaints since yesterday. Past Medical History Reviewed: Historical Data, Nursing Documentation, Vital Signs Vital Signs: Last Vital Signs Temp 98.4 F 03/21/19 01:01 Pulse 91 H 03/21/19 01:01 Resp 18 03/21/19 01:01 BP 130/86 03/21/19 01:01 Pulse Ox 98 03/21/19 01:01 Primary Care Provider: Sarmad Holliday - Medical History PMH: Anemia, Asthma, Bronchitis, Fractures (LEFT FOOT), HTN Denies: Chronic Kidney Disease - Surgical History Surgical History: - Family History Family History: States: Unknown Family Hx - Immunization History Hx Tetanus Toxoid Vaccination: Yes Hx Influenza Vaccination: No Hx Pneumococcal Vaccination: No - Home Medications Home Medications: Ambulatory Orders Medication Instructions Recorded Famotidine [Pepcid] 20 mg PO BID #20 tab 04/12/18 Ondansetron ODT [Zofran ODT] 4 mg PO TID PRN #12 odt 04/12/18 Polymyxin/Trimethoprim Sulfate 1 drop XX Q6H 10 Days bottle 10/06/18 [Polytrim Ophth Soln] Naproxen [Naprosyn] 500 mg PO BID PRN #10 tab 10/24/18 Ibuprofen [Motrin Tab] 600 mg PO Q6 #30 tab 11/22/18 Famotidine [Pepcid] 20 mg PO Q12 #14 tab 01/12/19 Metoclopramide [Reglan] 10 mg PO Q6 PRN #12 tab 01/12/19 Clotrimazole 1% Cream [Lotrimin 1%] 1 appl TOP TID #30 gm 01/13/19 Albuterol Sulfate [Proair Hfa] 0.09 mg IH Q6H PRN #2 inh 03/19/19 Benzonatate [Tessalon Perles] 100 mg PO BID PRN 5 Days sgl 03/19/19 Ibuprofen [Motrin] 600 mg PO TID 7 Days tab 03/19/19 predniSONE [predniSONE Tab] 20 mg PO BID 5 Days tab 03/19/19 Albuterol HFA [Ventolin HFA 90 1 - 2 puff IH Q4H PRN #1 bottle 03/21/19 mcg/actuation (8 g)] predniSONE [Prednisone] 40 mg PO DAILY #8 tab 03/21/19 - Allergies Allergies/Adverse Reactions: Allergies Allergy/AdvReac Type Severity Reaction Status Date / Time FISH Allergy RASH Verified 02/22/19 00:53 PORK Allergy RASH Verified 02/22/19 00:53 SEASONAL Allergy COUGH Uncoded 02/22/19 00:53 Review of Systems ROS Statement: Except As Marked, All Systems Reviewed And Found Negative Respiratory: Positive for: Cough, Wheezing Physical Exam - Reviewed Nursing Documentation Reviewed: Yes Vital Signs Reviewed: Yes - Physical Exam Appears: Positive for: No Acute Distress Head Exam: Positive for: ATRAUMATIC, NORMAL INSPECTION, NORMOCEPHALIC Skin: Positive for: Normal Color Eye Exam: Positive for: Normal appearance ENT: Positive for: Normal ENT Inspection Neck: Positive for: Supple Cardiovascular/Chest: Positive for: Regular Rate, Rhythm. Negative for: Tachycardia Respiratory: Positive for: Wheezing, Other (good airway entry bilaterally). Negative for: Decreased Breath Sounds, Accessory Muscle Use, Crackles, Rales, Stridor, Respiratory Distress Gastrointestinal/Abdominal: Positive for: Normal Exam Extremity: Positive for: Normal ROM Neurological/Psych: Positive for: Awake, Alert, Normal Tone - ECG O2 Sat by Pulse Oximetry: 98 (RA) Pulse Ox Interpretation: Normal Medical Decision Making Medical Decision Making: Impression: Wheezing, pt iwth history of asthma, this is likely asthma exacerbation. pt without fever. Plan: -- Duoneb 3ml INH -- Prednisone 50mg PO 0241 On reassessment, patient reports improvement of symptoms. on reeval pt sleeping comfortably in no distress with improvement in lung reeval after nebs and steroids.. Patient is stable for discharge home, instructed to follow up with Dr. Holliday in 2-3 days. given ner rx for albuterol and prednisone and told to follow up Scribe Attestation: Documented by Rose Monaco, acting as a scribe for Jameson Carballo MD. Provider Scribe Attestation: All medical record entries made by the Scribe were at my direction and personally dictated by me. I have reviewed the chart and agree that the record accurately reflects my personal performance of the history, physical exam, medical decision making, and the department course for this patient. I have also personally directed, reviewed, and agree with the discharge instructions and disposition. Disposition - Clinical Impression Clinical Impression: Asthma - Patient ED Disposition Is Patient to be Admitted: No Counseled Patient/Family Regarding: Studies Performed, Diagnosis, Need For Followup - Disposition Disposition: Routine/Home Disposition Time: 02:40 Condition: IMPROVED Additional Instructions: follow up with your primary doctor DR HOLLIDAY in 1-2 days return to the ED with any worsening or concerning symptoms Prescriptions: Albuterol HFA [Ventolin HFA 90 mcg/actuation (8 g)] 1 - 2 puff IH Q4H PRN #1 bottle PRN Reason: Wheezing predniSONE [Prednisone] 40 mg PO DAILY #8 tab Instructions: Asthma in Adults Forms: [employer] ([place])
[2019-03-21] MEDS ORDERED: Albuterol-Ipratrop 3 mg / 0.5 (3 ml) UD ONE (01:15)
[2019-03-21 03:36] VITALS: BP 129/84; PULSE 82; RESP 16
[2019-03-21 05:06] VITALS: O2SAT 98
== END 2019-03-21 03:36 | disposition home or self-care (01) ==
LOC: H.ER 00:44
DX: J45.909 Unspecified asthma, uncomplicated (principal); I10 Essential (primary) hypertension

== ENCOUNTER 2019-03-31 07:13 | Emergency (ER) | payer SELFPAY ==
[2019-03-31 07:30] VITALS: RESP 16; BMI 23.6
--- NOTE | 2019-03-31 07:48 | ED PDOC ---
HPI: General Adult Time Seen by Provider: 03/31/19 07:15 Chief Complaint (Nursing): Medical Clearance Chief Complaint (Provider): Medical Clearance History Per: Patient, Other (HPD) History/Exam Limitations: no limitations Onset/Duration Of Symptoms: Days Current Symptoms Are (Timing): Still Present Additional Complaint(s): 43 y/o female with a PMHx of HTN, Asthma and fatty liver brought in by [place] [employer] for medical and psychiatric clearance. Patient is currently under arrest for incarceration. At this time, patient only complaining of a mild headache. When asked what relieves her headache, patient reported "alcohol". Otherwise, patient denies any associated symptoms including fever, chills, abdominal pain, chest pain, shortness of breath, nausea, vomiting and diarrhea, musculoskeletal pain, dizziness, weakness, numbness, suicidal ideation, homicidal ideation and hallucinations. Headache is not worst in her life. No neck pain. Has had similar in the past. No dizziness. PMD: no provider Past Medical History Reviewed: Historical Data, Nursing Documentation, Vital Signs Vital Signs: Last Vital Signs Temp 98 F 03/31/19 07:29 Pulse 89 03/31/19 07:29 Resp 16 03/31/19 07:29 BP 145/79 03/31/19 07:29 Pulse Ox 97 03/31/19 07:29 Primary Care Provider: Non [facility] Provider, - Medical History PMH: Anemia, Asthma, Bronchitis, Fractures (LEFT FOOT), HTN Denies: Chronic Kidney Disease Other PMH: fatty liver - Surgical History Surgical History: - Family History Family History: States: Unknown Family Hx - Social History Alcohol: > 2 Drinks/Day Drugs: Denies - Immunization History Hx Tetanus Toxoid Vaccination: Yes Hx Influenza Vaccination: No Hx Pneumococcal Vaccination: No - Home Medications Home Medications: Ambulatory Orders Medication Instructions Recorded Famotidine [Pepcid] 20 mg PO BID #20 tab 04/12/18 Ondansetron ODT [Zofran ODT] 4 mg PO TID PRN #12 odt 04/12/18 Polymyxin/Trimethoprim Sulfate 1 drop XX Q6H 10 Days bottle 10/06/18 [Polytrim Ophth Soln] Naproxen [Naprosyn] 500 mg PO BID PRN #10 tab 10/24/18 Ibuprofen [Motrin Tab] 600 mg PO Q6 #30 tab 11/22/18 Famotidine [Pepcid] 20 mg PO Q12 #14 tab 01/12/19 Metoclopramide [Reglan] 10 mg PO Q6 PRN #12 tab 01/12/19 Clotrimazole 1% Cream [Lotrimin 1%] 1 appl TOP TID #30 gm 01/13/19 Albuterol Sulfate [Proair Hfa] 0.09 mg IH Q6H PRN #2 inh 03/19/19 Benzonatate [Tessalon Perles] 100 mg PO BID PRN 5 Days sgl 03/19/19 Ibuprofen [Motrin] 600 mg PO TID 7 Days tab 03/19/19 predniSONE [predniSONE Tab] 20 mg PO BID 5 Days tab 03/19/19 Albuterol HFA [Ventolin HFA 90 1 - 2 puff IH Q4H PRN #1 bottle 03/21/19 mcg/actuation (8 g)] predniSONE [Prednisone] 40 mg PO DAILY #8 tab 03/21/19 No Known Home Med 03/23/19 - Allergies Allergies/Adverse Reactions: Allergies Allergy/AdvReac Type Severity Reaction Status Date / Time FISH Allergy RASH Verified 03/24/19 08:35 PORK Allergy RASH Verified 03/24/19 08:35 seafood Allergy Uncoded 03/24/19 08:35 SEASONAL Allergy COUGH Uncoded 03/24/19 08:35 Review of Systems ROS Statement: Except As Marked, All Systems Reviewed And Found Negative Constitutional: Negative for: Fever, Chills Cardiovascular: Negative for: Chest Pain Respiratory: Negative for: Shortness of Breath Gastrointestinal: Negative for: Nausea, Vomiting, Abdominal Pain, Diarrhea Musculoskeletal: Negative for: Neck Pain, Shoulder Pain, Arm Pain, Back Pain, Hand Pain, Leg Pain, Foot Pain Neurological: Positive for: Headache. Negative for: Weakness, Numbness, Dizziness Psych: Negative for: Suicidal ideation (or homicidal ideation), Other (hallucinations) Physical Exam - Reviewed Nursing Documentation Reviewed: Yes Vital Signs Reviewed: Yes - Physical Exam Appears: Positive for: No Acute Distress Head Exam: Positive for: ATRAUMATIC, NORMOCEPHALIC Skin: Positive for: Normal Color, Warm, Dry Eye Exam: Positive for: Normal appearance, EOMI, PERRL ENT: Positive for: Normal ENT Inspection Neck: Positive for: Normal, Painless ROM, Supple Cardiovascular/Chest: Positive for: Regular Rate, Rhythm. Negative for: Murmur Respiratory: Positive for: Normal Breath Sounds. Negative for: Respiratory Distress Gastrointestinal/Abdominal: Positive for: Normal Exam, Soft. Negative for: Tenderness, Mass, Guarding, Rebound Back: Positive for: Normal Inspection. Negative for: L CVA Tenderness, R CVA Tenderness, Vertebral Tenderness Extremity: Positive for: Normal ROM. Negative for: Pedal Edema, Deformity Neurological/Psych: Positive for: Awake, Alert, Oriented (x3), director of development II-XII (intact). Negative for: Motor/Sensory Deficits, Facial Droop - ECG O2 Sat by Pulse Oximetry: 97 (RA) Pulse Ox Interpretation: Normal - Progress ED Course And Treament: 820: Stable. AAOx3. Pain free. Tolerated PO. Crisis saw pt. and cleared. Pt. frequent visits to the ER for different issues and is homeless. Medical Decision Making Medical Decision Making: Time: 730 Impression: Medical and Psychiatric Clearance for incarceration Plan: -- Crisis Evaluation -- Motrin 600 mg PO Scribe Attestation: Documented by Queta Freed, acting as a scribe Marsha Arce MD. Provider Scribe Attestation: All medical record entries made by the Scribe were at my direction and personally dictated by me. I have reviewed the chart and agree that the record accurately reflects my personal performance of the history, physical exam, medical decision making, and the department course for this patient. I have also personally directed, reviewed, and agree with the discharge instructions and disposition. Disposition - Clinical Impression Clinical Impression: Adjustment disorder - Patient ED Disposition Is Patient to be Admitted: No Counseled Patient/Family Regarding: Diagnosis, Need For Followup - Disposition Referrals: [facility] [Outside] - 04/04/19 Disposition: Routine/Home Disposition Time: 07:30 Condition: STABLE Additional Instructions: You are medically and psychiatrically cleared for incarceration at this time. Instructions: Adjustment Disorder
[2019-03-31 08:47] VITALS: BP 132/87; PULSE 71; TEMP 98.1; O2SAT 95
== END 2019-03-31 08:39 ==
LOC: H.ER 07:13
DX: F43.20 Adjustment disorder, unspecified (principal); I10 Essential (primary) hypertension; J45.909 Unspecified asthma, uncomplicated; Z00.8 Encounter for other general examination; Z00.00 Encounter for general adult medical examination without abnormal findings